=== PATIENT | female | born 1975 | race Hispanic/Latino ===

== ENCOUNTER 2018-01-24 15:23 | Emergency (ER) | payer MEDICAID, OTHER ==
[~2018-01-24 15:23] MED LIST: ASPI-1012 PO; ATOR10 PO; LEVO100T4 PO; Metformin Hcl PO
[2018-01-24] MEDS ORDERED: ASPIRIN 325 MG TABLET ONE (16:08)
[2018-01-24] MEDS ORDERED: NITROGLYCERIN 1GM/1 INCH PACKET TD ONE (16:09)
[2018-01-24 17:15] LABS: BASOPHILS % (AUTO) 0.8 % (0.0-5.0); EOSINOPHILS % (AUTO) 2.6 % (0.0-8.0); HEMATOCRIT 33.9 % (36-48); LYMPHOCYTES % (AUTO) 13.4 % (21.0-51.0); MEAN CORPUSCULAR HEMOGLOBIN 23.7 pg (27.0-33.0); MEAN CORPUSCULAR HGB CONC 31.2 g/dL (32.0-36.0); MEAN CORPUSCULAR VOLUME 76.2 fL (79-99); MONOCYTES % (AUTO) 4.9 % (3.0-13.0); NEUTROPHILS % (AUTO) 78.3 % (40.0-77.0); PLATELET COUNT (AUTO) 224 K/uL (130-400); RED BLOOD CELL COUNT(AUTO) 4.46 MIL/uL (4.00-5.50); RED CELL DISTRIBUTION WIDTH 16.8 % (11.0-15.5); WHITE BLOOD COUNT (AUTO) 9.7 K/uL (4.8-10.8)
[2018-01-24 17:22] LABS: CREATININE 1.1 mg/dL (0.5-1.5); POTASSIUM 3.9 mmol/L (3.5-5.1)
[2018-01-24 17:24] LABS: APPEARANCE,URINE Cloudy (CLEAR); BILIRUBIN,URINE Negative (NEGATIVE); COLOR,URINE Yellow (YELLOW); GLUCOSE, URINE (UA) TRACE mg/dL (NEGATIVE); KETONES,URINE Negative (NEGATIVE); LEUKOCYTE ESTERASE ,URINE Negative (NEGATIVE); NITRATE,URINE Negative (NEGATIVE); OCCULT BLOOD,URINE Negative (NEGATIVE); PROTEIN,URINE POS 2+ (NEGATIVE)
[2018-01-24 17:25] LABS: HCG,QUAL RESULT NEGATIVE (NEGATIVE)
[2018-01-24 17:29] LABS: BACTERIA,URINE Rare /HPF (None Seen); RBC,URINE None Seen /HPF (0-1)
[2018-01-24 17:36] LABS: AMPHET/METH SCREEN,URINE NEGATIVE (NEGATIVE); BARBITURATE SCREEN, URINE NEGATIVE (NEGATIVE); BENZODIAZEPINES SCREEN,URINE NEGATIVE (NEGATIVE); CANNABINOID SCREEN,URINE NEGATIVE (NEGATIVE); COCAINE SCREEN,URINE NEGATIVE (NEGATIVE); OPIATE SCREEN,URINE NEGATIVE (NEGATIVE); PHENCYCLIDINE SCREEN,URINE NEGATIVE (NEGATIVE)
[2018-01-24 17:36] LABS: ALBUMIN 3.5 g/dL (3.5-5.0); BILIRUBIN,TOTAL 0.5 mg/dL (0.2-1.0); TOTAL PROTEIN, SERUM 9.1 g/dL (6.0-8.3)
== END 2018-01-24 23:27 | disposition home or self-care (01) ==
LOC: EDH 15:23 → UNDOADMIN 15:24 → EDHIP 15:24 → EDH 23:27
DX: I20.0 Unstable angina (principal); I10 Essential (primary) hypertension; E66.01 Morbid (severe) obesity due to excess calories; E11.9 Type 2 diabetes mellitus without complications; E07.9 Disorder of thyroid, unspecified; Z68.44 Body mass index [BMI] 60.0-69.9, adult
CPT/HCPCS: 36415; 71046; 80053; 80305; 81001; 81025; 82550; 82553; 83690; 84484; 85025; 93005

== ENCOUNTER 2018-08-04 14:54 | Inpatient (IN) | payer MEDICAID ==
[~2018-08-04] VITALS: Ht 152.4 cm; Wt 147.5 kg
[2018-08-04 15:58] LABS: BASOPHILS % (AUTO) 0.9 % (0.0-5.0); EOSINOPHILS % (AUTO) 2.3 % (0.0-8.0); HEMATOCRIT 31.5 % (36-48); MEAN CORPUSCULAR HEMOGLOBIN 23.8 pg (27.0-33.0); MEAN CORPUSCULAR HGB CONC 30.8 g/dL (32.0-36.0); MEAN CORPUSCULAR VOLUME 77.2 fL (79-99); MONOCYTES % (AUTO) 4.7 % (3.0-13.0); NEUTROPHILS % (AUTO) 80.1 % (40.0-77.0); PLATELET COUNT (AUTO) 221 K/uL (130-400); RED BLOOD CELL COUNT(AUTO) 4.07 MIL/uL (4.00-5.50); RED CELL DISTRIBUTION WIDTH 19.7 % (11.0-15.5)
[2018-08-04 16:08] LABS: CREATININE 1.1 mg/dL (0.5-1.5); POTASSIUM 3.5 mmol/L (3.5-5.1)
[2018-08-04 16:10] LABS: INR 1.09 (0.85-1.15); PARTIAL THROMBOPLASTIN TIME 29.1 SEC (26.3-35.5); PROTHROMBIN TIME 11.4 SEC (9.6-11.6)
[2018-08-04 16:11] LABS: ABG BASE EXCESS 6.7 mmol/L (-2.0-3.0); ABG HCO3 33.8 mmol/L (21.0-28.0); ABG OXYGEN SATURATION 86.5 % (95.0-99.0); ABG PCO2 58 mmHg (32-45)
[2018-08-04 16:19] LABS: ALBUMIN 3.5 g/dL (3.5-5.0); BILIRUBIN,TOTAL 0.7 mg/dL (0.2-1.0); TOTAL PROTEIN, SERUM 8.6 g/dL (6.0-8.3)
[2018-08-04] MEDS ORDERED: ASPIRIN 325 MG TABLET ONE (16:25)
[2018-08-04 16:38] LABS: B-TYPE NATRIURETIC PEPTIDE 109 pg/mL (0-100)
[2018-08-04] MEDS ORDERED: IPRATROPIUM/ALBUTEROL SULFATE 3 ML SOLUTION IH PRN (18:45)
[2018-08-04 20:50] VITALS: BP 152/81
[2018-08-04] MEDS: INSULIN HUMULIN R 100 UNIT/ML 3ML SQ SCH (21:00)
[2018-08-04] MEDS ORDERED: ASPI-555 PO (21:06)
[2018-08-04] MEDS ORDERED: LEVO300T8 PO (21:06)
[2018-08-04] MEDS ORDERED: ATOR20TA65 PO (21:06)
[2018-08-04] MEDS ORDERED: METHYLPREDNISOLONE SOD SUCC 40MG/ML 1ML ONE (21:48)
[2018-08-04] MEDS: ATORVASTATIN CALCIUM 40 MG TABLET PO SCH (21:55)
[2018-08-04] MEDS: LEVOFLOXACIN 750 MG/D5W 150 ML 150 ML IV SCH (22:03)
[2018-08-05] MEDS ORDERED: CLONIDINE HCL 0.1 MG TABLET ONE (04:20)
[2018-08-05] MEDS ORDERED: LEVOTHYROXINE 75 MCG TABLET ONE (04:21)
[2018-08-05 04:22] LABS: BASOPHILS % (AUTO) 0.4 % (0.0-5.0); EOSINOPHILS % (AUTO) 0.5 % (0.0-8.0); HEMATOCRIT 33.4 % (36-48); MEAN CORPUSCULAR HEMOGLOBIN 23.2 pg (27.0-33.0); MEAN CORPUSCULAR VOLUME 77.3 fL (79-99); MONOCYTES % (AUTO) 1.9 % (3.0-13.0); NEUTROPHILS % (AUTO) 91.2 % (40.0-77.0); NUCLEATED RED BLOOD CELLS 0.1 % (0.0-0.19); PLATELET COUNT (AUTO) 207 K/uL (130-400); RED BLOOD CELL COUNT(AUTO) 4.32 MIL/uL (4.00-5.50); RED CELL DISTRIBUTION WIDTH 19.6 % (11.0-15.5); WHITE BLOOD COUNT (AUTO) 10.3 K/uL (4.8-10.8)
[2018-08-05] MEDS: LEVOTHYROXINE 75 MCG TABLET PO SCH ×2 (04:23→04:46)
[2018-08-05 04:26] LABS: HEMOGLOBIN A1C 9.3 % (4.0-6.0)
[2018-08-05 04:28] LABS: POTASSIUM 4.4 mmol/L (3.5-5.1)
[2018-08-05 04:30] VITALS: BP 184/95
[2018-08-05 04:42] LABS: ALBUMIN 3.6 g/dL (3.5-5.0); BILIRUBIN,TOTAL 0.8 mg/dL (0.2-1.0); CREATININE 1.1 mg/dL (0.5-1.5); TOTAL PROTEIN, SERUM 9.2 g/dL (6.0-8.3)
[2018-08-05] MEDS: INSULIN HUMULIN R 100 UNIT/ML 3ML SQ SCH ×4 (06:42→20:15)
[2018-08-05 07:45] VITALS: BP 167/89
[2018-08-05] MEDS: METHYLPREDNISOLONE SOD SUCC 40MG/ML 1ML IVP SCH ×2 (08:25→20:02)
[2018-08-05] MEDS: ASPIRIN 81MG TAB.CHEW PO SCH (08:25)
[2018-08-05] MEDS: PANTOPRAZOLE SODIUM 40 MG TABLET.DR PO SCH (08:25)
[2018-08-05] MEDS: ENOXAPARIN SODIUM 40 MG/0.4 ML SYRINGE SQ SCH (08:25)
[2018-08-05] MEDS ORDERED: ACETAMINOPHEN 325 MG TAB PO PRN (11:15)
[2018-08-05 11:22] VITALS: BP 157/75
[2018-08-05] MEDS: TRAMADOL HCL 50 MG TABLET PO PRN (11:34)
[2018-08-05 16:47] VITALS: BP 171/93
[2018-08-05] MEDS: ATORVASTATIN CALCIUM 40 MG TABLET PO SCH (17:38)
[2018-08-05] MEDS: CLONIDINE HCL 0.1 MG TABLET PO PRN (18:27)
[2018-08-05 19:49] VITALS: BP 171/91
[2018-08-05 21:14] LABS: ABG BASE EXCESS 4.9 mmol/L (-2.0-3.0); ABG HCO3 32.8 mmol/L (21.0-28.0); ABG OXYGEN SATURATION 81.8 % (95.0-99.0); ABG PCO2 62 mmHg (32-45)
[2018-08-05] MEDS: LEVOFLOXACIN 750 MG/D5W 150 ML 150 ML IV SCH (22:42)
[2018-08-06] VITALS: BP 160/87
[2018-08-06 03:41] VITALS: BP 157/83
[2018-08-06] MEDS: INSULIN HUMULIN R 100 UNIT/ML 3ML SQ SCH ×4 (05:51→20:29)
[2018-08-06] MEDS ORDERED: LEVOTHYROXINE 50 MCG TABLET PO SCH (06:30)
[2018-08-06 07:52] VITALS: BP 167/83
[2018-08-06] MEDS: ENOXAPARIN SODIUM 40 MG/0.4 ML SYRINGE SQ SCH (09:33)
[2018-08-06] MEDS: PANTOPRAZOLE SODIUM 40 MG TABLET.DR PO SCH (09:33)
[2018-08-06] MEDS: METHYLPREDNISOLONE SOD SUCC 40MG/ML 1ML IVP SCH ×2 (09:33→20:29)
[2018-08-06] MEDS: ASPIRIN 81MG TAB.CHEW PO SCH (09:33)
[2018-08-06 11:57] VITALS: BP 157/81
[2018-08-06 15:52] VITALS: BP_SYST 132; BP_SYST 148; BP_DIAS 71; BP_DIAS 79
[2018-08-06 19:37] VITALS: BP 153/90
[2018-08-06] MEDS: LEVOFLOXACIN 750 MG/D5W 150 ML 150 ML IV SCH (22:44)
[2018-08-07] VITALS (8 sets, daily range): BP systolic 148–182; BP diastolic 77–102
[2018-08-07 04:23] LABS: BASOPHILS % (AUTO) 0.1 % (0.0-5.0); MEAN CORPUSCULAR HEMOGLOBIN 22.4 pg (27.0-33.0); MEAN CORPUSCULAR VOLUME 77.3 fL (79-99); MONOCYTES % (AUTO) 3.6 % (3.0-13.0); NEUTROPHILS % (AUTO) 88.3 % (40.0-77.0); PLATELET COUNT (AUTO) 204 K/uL (130-400); RED BLOOD CELL COUNT(AUTO) 4.27 MIL/uL (4.00-5.50); RED CELL DISTRIBUTION WIDTH 19.3 % (11.0-15.5); WHITE BLOOD COUNT (AUTO) 11.2 K/uL (4.8-10.8)
[2018-08-07 04:33] LABS: ALBUMIN 3.6 g/dL (3.5-5.0); BILIRUBIN,TOTAL 0.5 mg/dL (0.2-1.0); POTASSIUM 4.2 mmol/L (3.5-5.1)
[2018-08-07] MEDS: INSULIN HUMULIN R 100 UNIT/ML 3ML SQ SCH ×4 (06:03→21:54)
[2018-08-07] MEDS ORDERED: CLONIDINE HCL 0.1 MG TABLET PO PRN (08:15)
[2018-08-07] MEDS: PANTOPRAZOLE SODIUM 40 MG TABLET.DR PO SCH (08:27)
[2018-08-07] MEDS: ENOXAPARIN SODIUM 40 MG/0.4 ML SYRINGE SQ SCH (08:27)
[2018-08-07] MEDS: METHYLPREDNISOLONE SOD SUCC 40MG/ML 1ML IVP SCH ×2 (08:27→21:46)
[2018-08-07] MEDS: LISINOPRIL 40 MG TABLET PO SCH (08:28)
[2018-08-07] MEDS: ASPIRIN 81MG TAB.CHEW PO SCH (08:28)
[2018-08-07] MEDS: CLONIDINE HCL 0.1 MG TABLET PO PRN (16:40)
[2018-08-07] MEDS: LEVOFLOXACIN 750 MG/D5W 150 ML 150 ML IV SCH (21:46)
[2018-08-08 04:03] VITALS: BP 150/95
[2018-08-08 04:53] LABS: ABG BASE EXCESS 6.6 mmol/L (-2.0-3.0); ABG HCO3 34.7 mmol/L (21.0-28.0); ABG OXYGEN SATURATION 93.5 % (95.0-99.0); ABG PCO2 65 mmHg (32-45)
[2018-08-08 05:24] LABS: BASOPHILS % (AUTO) 0.3 % (0.0-5.0); HEMATOCRIT 32.9 % (36-48); LYMPHOCYTES % (AUTO) 7.2 % (21.0-51.0); MEAN CORPUSCULAR HEMOGLOBIN 23.8 pg (27.0-33.0); MEAN CORPUSCULAR HGB CONC 30.6 g/dL (32.0-36.0); MEAN CORPUSCULAR VOLUME 77.8 fL (79-99); MONOCYTES % (AUTO) 3.2 % (3.0-13.0); NEUTROPHILS % (AUTO) 89.3 % (40.0-77.0); PLATELET COUNT (AUTO) 207 K/uL (130-400); RED BLOOD CELL COUNT(AUTO) 4.22 MIL/uL (4.00-5.50); RED CELL DISTRIBUTION WIDTH 18.8 % (11.0-15.5); WHITE BLOOD COUNT (AUTO) 9.7 K/uL (4.8-10.8)
[2018-08-08 05:51] LABS: ALBUMIN 3.5 g/dL (3.5-5.0); BILIRUBIN,TOTAL 0.4 mg/dL (0.2-1.0); MAGNESIUM 2.4 mg/dL (1.80-2.40); PHOSPHORUS 3.1 mg/dL (2.5-4.9); POTASSIUM 4.8 mmol/L (3.5-5.1); THYROID STIMULATING HORMONE 90.37 uIU/mL (0.36-3.74); TOTAL PROTEIN, SERUM 8.8 g/dL (6.0-8.3)
[2018-08-08] MEDS: INSULIN HUMULIN R 100 UNIT/ML 3ML SQ SCH ×4 (06:51→20:42)
[2018-08-08 07:48] VITALS: BP 179/95
[2018-08-08] MEDS: LISINOPRIL 40 MG TABLET PO SCH (09:39)
[2018-08-08] MEDS: PANTOPRAZOLE SODIUM 40 MG TABLET.DR PO SCH (09:39)
[2018-08-08] MEDS: ASPIRIN 81MG TAB.CHEW PO SCH (09:39)
[2018-08-08] MEDS: METHYLPREDNISOLONE SOD SUCC 40MG/ML 1ML IVP SCH ×2 (09:40→20:33)
[2018-08-08] MEDS: ENOXAPARIN SODIUM 40 MG/0.4 ML SYRINGE SQ SCH (09:40)
[2018-08-08 11:35] VITALS: BP 156/87
[2018-08-08] MEDS ORDERED: LISI40TA4 PO (13:31)
[2018-08-08] MEDS ORDERED: AMLO5TAB4 PO (14:02)
[2018-08-08 16:22] VITALS: BP 178/102
[2018-08-08] MEDS: AMLODIPINE BESYLATE 5 MG TAB PO SCH (17:40)
[2018-08-08 19:33] VITALS: BP 167/90
[2018-08-08] MEDS: CLONIDINE HCL 0.1 MG TABLET PO PRN (20:53)
[2018-08-08] MEDS: LEVOFLOXACIN 750 MG/D5W 150 ML 150 ML IV SCH (22:48)
[2018-08-08 23:02] VITALS: BP 145/80
[2018-08-09 03:25] VITALS: BP 145/73
[2018-08-09] MEDS: INSULIN HUMULIN R 100 UNIT/ML 3ML SQ SCH ×3 (05:45→11:37)
[2018-08-09] MEDS: TRAMADOL HCL 50 MG TABLET PO PRN (06:10)
[2018-08-09 06:40] LABS: HEMOGLOBIN A1C 9.2 % (4.0-6.0)
[2018-08-09 07:30] VITALS: BP 167/100
[2018-08-09] MEDS ORDERED: INSULIN HUMULIN R 100 UNIT/ML 3ML SQ SCH (07:30)
[2018-08-09] MEDS: ASPIRIN 81MG TAB.CHEW PO SCH (09:08)
[2018-08-09] MEDS: AMLODIPINE BESYLATE 5 MG TAB PO SCH (09:08)
[2018-08-09] MEDS: PANTOPRAZOLE SODIUM 40 MG TABLET.DR PO SCH (09:08)
[2018-08-09] MEDS: LISINOPRIL 40 MG TABLET PO SCH (09:08)
[2018-08-09] MEDS: METHYLPREDNISOLONE SOD SUCC 40MG/ML 1ML IVP SCH (09:09)
[2018-08-09] MEDS: CLONIDINE HCL 0.1 MG TABLET PO PRN (09:09)
[2018-08-09] MEDS: ENOXAPARIN SODIUM 40 MG/0.4 ML SYRINGE SQ SCH (09:13)
[2018-08-09 11:00] VITALS: BP 145/104
[2018-08-09] MEDS ORDERED: AMLODIPINE BESYLATE 5 MG TAB PO ONE (11:38)
[2018-08-09] MEDS ORDERED: CLONIDINE HCL 0.1 MG TABLET PO SCH (11:45)
[2018-08-09 12:45] VITALS: BP 135/84
[2018-08-09 16:00] VITALS: BP 158/92
[2018-08-09] MEDS ORDERED: AMLODIPINE BESYLATE 5 MG TAB PO SCH (21:00)
== END 2018-08-09 17:27 | disposition home or self-care (01) | DRG 133 ==
LOC: EDH 14:54 → EDHIP 14:55 → 4BH 21:05
PROVIDERS: ADMIT Hospitalist; ATTEND Hospitalist
PROC: 5A09357 Assistance with Respiratory Ventilation, Less than 24 Consecutive Hours, Continuous Positive Airway Pressure (ICD-10-PCS; principal; 2018-08-05)
PROC: 5A09357 Assistance with Respiratory Ventilation, Less than 24 Consecutive Hours, Continuous Positive Airway Pressure (ICD-10-PCS; 2018-08-06)
PROC: 5A09357 Assistance with Respiratory Ventilation, Less than 24 Consecutive Hours, Continuous Positive Airway Pressure (ICD-10-PCS; 2018-08-07)
DX: J96.21 Acute and chronic respiratory failure with hypoxia (principal); I27.81 Cor pulmonale (chronic); E66.2 Morbid (severe) obesity with alveolar hypoventilation; Z68.44 Body mass index [BMI] 60.0-69.9, adult; J44.1 Chronic obstructive pulmonary disease with (acute) exacerbation; J96.22 Acute and chronic respiratory failure with hypercapnia; I10 Essential (primary) hypertension; E11.9 Type 2 diabetes mellitus without complications; E03.9 Hypothyroidism, unspecified; F41.9 Anxiety disorder, unspecified; Z79.890 Hormone replacement therapy; Z88.6 Allergy status to analgesic agent; Z88.8 Allergy status to other drugs, medicaments and biological substances; Z91.19 Patient's noncompliance with other medical treatment and regimen; Z91.14 Patient's other noncompliance with medication regimen; Z83.3 Family history of diabetes mellitus; Z82.49 Family history of ischemic heart disease and other diseases of the circulatory system; Z84.89 Family history of other specified conditions
CPT/HCPCS: 36415; 36600; 71045; 80053; 82550; 82803; 82948; 83036; 83605; 83735; 83874; 83880; 84100; 84439; 84443; 84484; 84702; 85025; 85378; 85610; 85730; 93005; 93970; 94660; 94664; 94760; 99291; A4606; J1650; J1815; J1956; J2920

== ENCOUNTER 2018-09-10 12:35 | Emergency (ER) | payer MEDICAID ==
[~2018-09-10 12:35] MED LIST changes: +AMLO5TAB4 PO; -ASPI-1012 PO; +ASPI-555 PO; -ATOR10 PO; +ATOR20TA65 PO; -LEVO100T4 PO; +LEVO300T8 PO; +LISI40TA4 PO
[2018-09-10 13:19] LABS: BASOPHILS % (AUTO) 0.5 % (0.0-5.0); EOSINOPHILS % (AUTO) 0.7 % (0.0-8.0); HEMATOCRIT 30.6 % (36-48); LYMPHOCYTES % (AUTO) 10.2 % (21.0-51.0); MEAN CORPUSCULAR HGB CONC 29.8 g/dL (32.0-36.0); MEAN CORPUSCULAR VOLUME 77.2 fL (79-99); MONOCYTES % (AUTO) 5.5 % (3.0-13.0); NEUTROPHILS % (AUTO) 83.1 % (40.0-77.0); PLATELET COUNT (AUTO) 186 K/uL (130-400); RED BLOOD CELL COUNT(AUTO) 3.97 MIL/uL (4.00-5.50); RED CELL DISTRIBUTION WIDTH 17.3 % (11.0-15.5); WHITE BLOOD COUNT (AUTO) 10.9 K/uL (4.8-10.8)
[2018-09-10 13:55] LABS: CREATININE 0.9 mg/dL (0.5-1.5)
[2018-09-10 14:02] LABS: ALBUMIN 2.9 g/dL (3.5-5.0); BILIRUBIN,DIRECT 0.2 mg/dL (0.0-0.3); BILIRUBIN,TOTAL 0.6 mg/dL (0.2-1.0); TOTAL PROTEIN, SERUM 8.2 g/dL (6.0-8.3)
== END 2018-09-10 14:28 | disposition home or self-care (01) ==
LOC: EDH 12:35
DX: L03.311 Cellulitis of abdominal wall (principal); E07.9 Disorder of thyroid, unspecified; I10 Essential (primary) hypertension; E78.5 Hyperlipidemia, unspecified; E11.9 Type 2 diabetes mellitus without complications
CPT/HCPCS: 36415; 80048; 80076; 85025; 96365

== ENCOUNTER → 2018-10-16 | Outpatient (CLI) | payer MEDICAID | END | disposition home or self-care (01) | LOC: SHCH 10:51 | PROVIDERS: ATTEND Internal Medicine Cardiovascular Disease | DX: I10 Essential (primary) hypertension (principal); R06.00 Dyspnea, unspecified | CPT/HCPCS: 93306 ==

== ENCOUNTER 2021-06-03 12:51 | Emergency (ER) | payer MEDICARE ==
[~2021-06-03] VITALS: Ht 152.4 cm; Wt 136.1 kg
[~2021-06-03 12:51] MED LIST changes: -ASPI-555 PO; +ASPI-556 PO; +GLIM2TAB30 PO; -LISI40TA4 PO; +LISI40TA9 PO; +METF-446 PO
[2021-06-03 12:53] VITALS: BP 130/72
[2021-06-03 13:23] LABS: BASOPHILS % (AUTO) 0.4 % (0.0-5.0); EOSINOPHILS % (AUTO) 1.7 % (0.0-8.0); HEMATOCRIT 43.2 % (36-48); LYMPHOCYTES % (AUTO) 12.9 % (21.0-51.0); MEAN CORPUSCULAR HEMOGLOBIN 28.3 pg (27.0-33.0); MEAN CORPUSCULAR HGB CONC 30.1 g/dL (32.0-36.0); MEAN CORPUSCULAR VOLUME 94.1 fL (79-99); MONOCYTES % (AUTO) 5.4 % (3.0-13.0); NEUTROPHILS % (AUTO) 79.4 % (40.0-77.0); PLATELET COUNT (AUTO) 164 K/uL (130-400); RED BLOOD CELL COUNT(AUTO) 4.59 MIL/uL (4.00-5.50); RED CELL DISTRIBUTION WIDTH 13.6 % (11.0-15.5); WHITE BLOOD COUNT (AUTO) 9.3 K/uL (4.8-10.8)
[2021-06-03 13:34] LABS: CREATININE 1.3 mg/dL (0.5-1.5); POTASSIUM 3.9 mmol/L (3.5-5.1)
[2021-06-03 13:45] LABS: ALBUMIN 3.4 g/dL (3.5-5.0); BILIRUBIN,TOTAL 0.7 mg/dL (0.2-1.0); TROPONIN I 0.13 ng/mL (0.00-0.06)
[2021-06-03 13:50] LABS: INR 1.06 (0.85-1.15); PROTHROMBIN TIME 11.5 SEC (9.6-11.6)
[2021-06-03 13:51] LABS: PARTIAL THROMBOPLASTIN TIME 27.1 SEC (26.3-35.5)
[2021-06-03 14:02] VITALS: BP 124/66
[2021-06-03 14:16] LABS: B-TYPE NATRIURETIC PEPTIDE 53 pg/mL (0-100)
[2021-06-03] MEDS ORDERED: PRED20TA3 PO (14:49)
[2021-06-03 15:02] VITALS: BP 121/76
== END 2021-06-03 15:02 | disposition home or self-care (01) ==
LOC: EDH 12:51
DX: G51.0 Bell's palsy (principal); E11.65 Type 2 diabetes mellitus with hyperglycemia; E66.01 Morbid (severe) obesity due to excess calories; I10 Essential (primary) hypertension; Z79.52 Long term (current) use of systemic steroids; Z79.82 Long term (current) use of aspirin; Z79.84 Long term (current) use of oral hypoglycemic drugs; Z79.899 Other long term (current) drug therapy; Z68.43 Body mass index [BMI] 50.0-59.9, adult
CPT/HCPCS: 36415; 70450; 71045; 80053; 82550; 82948; 83874; 83880; 84484; 85025; 85610; 85730; 93005

== ENCOUNTER → 2023-06-23 | Outpatient (CLI) | payer OTHER, MEDICARE ==
[~2023-06-23] MED LIST changes: +PRED20TA3 PO
[2023-06-23 12:09] LABS: HEMOGLOBIN A1C 9.9 % (4.0-6.0)
[2023-06-23 12:16] LABS: ALBUMIN 3.3 g/dL (3.5-5.0); BILIRUBIN,TOTAL 0.6 mg/dL (0.2-1.0); POTASSIUM 4.3 mmol/L (3.5-5.1); TOTAL PROTEIN, SERUM 8.2 g/dL (6.0-8.3)
== END | disposition home or self-care (01) ==
LOC: LAB 10:48
PROVIDERS: ATTEND Physician Assistant
DX: I11.9 Hypertensive heart disease without heart failure (principal); E11.9 Type 2 diabetes mellitus without complications; E78.5 Hyperlipidemia, unspecified; E03.9 Hypothyroidism, unspecified; G47.30 Sleep apnea, unspecified; G51.0 Bell's palsy; Z79.899 Other long term (current) drug therapy
CPT/HCPCS: 36415; 80053; 80061; 83036

== ENCOUNTER 2023-10-19 10:50 | Emergency (ER) | payer OTHER, MEDICARE ==
[~2023-10-19] VITALS: Ht 152.4 cm; Wt 137.0 kg
[2023-10-19] MEDS ORDERED: CYCLOBENZAPRINE HCL 10 MG TABLET PO ONE (12:00)
[2023-10-19] MEDS ORDERED: KETOROLAC 30MG VIAL (30MG/ML) IVP ONE (12:00)
[2023-10-19 12:02] LABS: BASOPHILS # (AUTO) 0.03 K/uL (0.00-0.20); BASOPHILS % (AUTO) 0.4 % (0.0-5.0); EOSINOPHILS # (AUTO) 0.21 K/uL (0.00-0.70); EOSINOPHILS % (AUTO) 2.9 % (0.0-8.0); HEMATOCRIT 41.2 % (36-48); IMMATURE GRANULOCYTE ABSOLUTE 0.03 K/uL (0-1); LYMPHOCYTES # (AUTO) 1.5 K/uL (1.0-4.8); LYMPHOCYTES % (AUTO) 21.4 % (21.0-51.0); MEAN CORPUSCULAR HEMOGLOBIN 29.6 pg (27.0-33.0); MEAN CORPUSCULAR HGB CONC 31.6 g/dL (32.0-36.0); MEAN CORPUSCULAR VOLUME 93.8 fL (79-99); MONOCYTES # (AUTO) 0.5 K/uL (0.1-1.0); MONOCYTES % (AUTO) 6.7 % (3.0-13.0); NEUTROPHILS # (AUTO) 4.9 K/uL (1.8-7.7); NEUTROPHILS % (AUTO) 68.2 % (40.0-77.0); PLATELET COUNT (AUTO) 156 K/uL (130-400); RED BLOOD CELL COUNT(AUTO) 4.39 MIL/uL (4.00-5.50); RED CELL DISTRIBUTION WIDTH 13.1 % (11.0-15.5); WHITE BLOOD COUNT (AUTO) 7.1 K/uL (4.8-10.8)
[2023-10-19 12:14] LABS: APPEARANCE,URINE CLOUDY (CLEAR); BILIRUBIN,URINE NEGATIVE (NEGATIVE); COLOR,URINE LIGHT-YELLOW (YELLOW); GLUCOSE, URINE (UA) 70 mg/dL (NEGATIVE); KETONES,URINE NEGATIVE (NEGATIVE); LEUKOCYTE ESTERASE ,URINE 500 Leu/uL (NEGATIVE); NITRATE,URINE 2+ (NEGATIVE); PROTEIN,URINE 70 mg/dL (NEGATIVE); UROBILINOGEN,URINE 0.2 mg/dL (0.2-1.0)
[2023-10-19 12:15] LABS: ADD UA MICROSCOPIC YES
[2023-10-19 12:17] LABS: HCG,QUALITATIVE URINE NEGATIVE (NEGATIVE)
[2023-10-19 12:21] LABS: BACTERIA,URINE MOD /HPF (None Seen); MUCUS,URINE RARE LPF (None Seen); SQUAMOUS EPITHELIAL CELL,UR MOD /HPF (0-2); WBC CLUMP FEW /HPF (0-1); WBC,URINE 51-100 /HPF (0-1)
[2023-10-19 12:24] LABS: YEAST,URINE BUDDING Moderate /HPF (None Seen)
[2023-10-19 12:27] LABS: CREATININE 1.1 mg/dL (0.5-1.5); POTASSIUM 3.9 mmol/L (3.5-5.1)
[2023-10-19 12:34] LABS: ALBUMIN 3.5 g/dL (3.5-5.0); BILIRUBIN,TOTAL 0.5 mg/dL (0.2-1.0); TOTAL PROTEIN, SERUM 8.6 g/dL (6.0-8.3)
[2023-10-19] MEDS ORDERED: CEFTRIAXONE 1G VIAL IVPB ONE (13:00)
[2023-10-19] MEDS ORDERED: FLUCONAZOLE 100 MG TAB PO ONE (13:00)
[2023-10-19] MEDS ORDERED: IBUP-2077 PO (14:11)
[2023-10-19] MEDS ORDERED: CEPH500B PO (14:11)
[2023-10-19] MEDS ORDERED: TAMS-1 PO (14:11)
[2023-10-19 14:16] VITALS: BP 118/92; PULSE 65; RESP 16; O2SAT 95
== END 2023-10-19 14:22 | disposition home or self-care (01) ==
LOC: EDH 10:50
DX: N20.0 Calculus of kidney (principal); N39.0 Urinary tract infection, site not specified; B37.9 Candidiasis, unspecified; E66.01 Morbid (severe) obesity due to excess calories; Z68.43 Body mass index [BMI] 50.0-59.9, adult; I10 Essential (primary) hypertension; E11.65 Type 2 diabetes mellitus with hyperglycemia; F41.9 Anxiety disorder, unspecified; F32.A Depression, unspecified; E03.9 Hypothyroidism, unspecified; Z79.82 Long term (current) use of aspirin; Z79.84 Long term (current) use of oral hypoglycemic drugs; Z79.899 Other long term (current) drug therapy; Z98.890 Other specified postprocedural states
CPT/HCPCS: 99284; 74176; 96374; 96375; 80053; 85025; 87077; 87088; 87186; 81001; 81025; 36415; J0696; J1885

== ENCOUNTER → 2024-06-27 | Outpatient (CLI) | payer OTHER, MEDICARE ==
[~2024-06-27] MED LIST changes: +CEPH500B PO; +IBUP-2077 PO; +TAMS-1 PO
[2024-06-27 12:48] LABS: HEMOGLOBIN A1C 11.2 % (4.0-6.0)
[2024-06-27 12:57] LABS: ALBUMIN 3.4 g/dL (3.5-5.0); BILIRUBIN,TOTAL 0.9 mg/dL (0.2-1.0); CREATININE 1.2 mg/dL (0.5-1.0); POTASSIUM 4.5 mmol/L (3.5-5.1); T4 (THYROXINE) 2.3 ug/dL (4.7-13.3); TOTAL PROTEIN, SERUM 8.6 g/dL (6.0-8.3)
[2024-06-27 13:22] LABS: THYROID STIMULATING HORMONE 211.74 uIU/mL (0.36-3.74)
== END | disposition home or self-care (01) ==
LOC: LAB 10:38
PROVIDERS: ATTEND Physician Assistant
DX: I10 Essential (primary) hypertension (principal); E78.5 Hyperlipidemia, unspecified; Z79.899 Other long term (current) drug therapy
CPT/HCPCS: 36415; 80053; 80061; 83036; 84436; 84443; 84479